=== PATIENT | female | born 1990 | race Caucasian/White ===

== ENCOUNTER 2022-05-28 18:33 | Inpatient (IN) | payer OTHER ==
[2022-05-28 19:12] VITALS: BMI 25.9
[2022-05-28] MEDS ORDERED: BISMUTH SUBSALICYLATE 524 MG/30 ML PO PRN (20:18)
[2022-05-28] MEDS ORDERED: DICYCLOMINE HCL 10 MG CAPSULE PO PRN (20:18)
[2022-05-28] MEDS ORDERED: NALOXONE HCL (KLOXXADO) 8 MG SPRAY NS PRN (20:18)
[2022-05-28] MEDS ORDERED: IBUPROFEN 600 MG TABLET (FP) PO PRN (20:18)
[2022-05-28] MEDS ORDERED: MAGNESIUM HYDROX 2400MG/30ML ORAL SUSPENSION 30 ML CUP PO PRN (20:18)
[2022-05-28] MEDS ORDERED: ACETAMINOPHEN 325 MG TABLET (FP) PO PRN ×2 (20:18)
[2022-05-28] MEDS ORDERED: ONDANSETRON *ODT* 4 MG TABLET SL PRN (20:18)
[2022-05-28] MEDS ORDERED: POLYETHYLENE GLYCOL (HEALTHYLAX) 3350 17 GM PACKET PO PRN (20:18)
[2022-05-28] MEDS ORDERED: BENZOCAINE/MENTHOL (CHLORASEPTIC ) LOZENGE MM PRN (20:18)
[2022-05-28] MEDS ORDERED: NICOTINE POLACRILEX 2 MG GUM BUC PRN (20:18)
[2022-05-28] MEDS ORDERED: LOPERAMIDE HCL 2 MG CAPSULE PO PRN (20:18)
[2022-05-28] MEDS ORDERED: IBUPROFEN 400 MG TABLET (FP) PO PRN (20:18)
[2022-05-28] MEDS ORDERED: MAG HYDROX/AL HYDROX/SIMETH 30 ML UNIT-DOSE CUP PO PRN (20:18)
[2022-05-28] MEDS ORDERED: cloNIDine HCL 0.1 MG TABLET PO PRN (20:21)
[2022-05-28] MEDS ORDERED: methaDONE HCL 10 MG TABLET (FOR DETOX USE ONLY) PO ONE ×2 (20:21→22:30)
[2022-05-28] MEDS ORDERED: MELATONIN 5 MG TABLETS PO SCH (22:00)
[2022-05-28] MEDS ORDERED: THIAMINE HCL 100 MG TABLET (FP) PO SCH (22:00)
[2022-05-29] MEDS ORDERED: PRENATAL VITAMINS W/ FOLIC ACID TABLET (FP) PO SCH (10:00)
[2022-05-29] MEDS ORDERED: NICOTINE 14 MG/24 HOURS TOPICAL PATCH TD SCH (10:00)
[2022-05-29] MEDS: hydrOXYzine PAMOATE 25 MG CAPSULE (FP) PO PRN ×2 (10:17→17:49)
[2022-05-29] MEDS: METHOCARBAMOL 500 MG TABLET PO PRN ×2 (10:17→17:49)
[2022-05-29 11:03] LABS: HEMATOCRIT 37.7 % (32.4-45.2); HEMOGLOBIN 12.5 GM/dL (10.7-15.3); MCH 30.4 pg (25.7-33.7); MCHC 33.2 g/dl (32.0-36.0); MEAN CELL VOLUME 91.5 fl (80-96); MEAN PLT VOLUME 9.2 fl (7.5-11.1); PLATELET COUNT 250 10^3/uL (134-434); RBC 4.12 M/mm3 (3.60-5.2); RDW 14.9 % (11.6-15.6); WHITE BLOOD COUNT 8.5 K/mm3 (4.0-10.0)
[2022-05-29 11:20] LABS: CALCIUM 8.3 mg/dL (8.5-10.1)
[2022-05-29 11:21] LABS: BLOOD UREA NITROGEN 12.8 mg/dL (7-18)
[2022-05-29 11:24] LABS: CREATININE 0.8 mg/dL (0.55-1.3)
[2022-05-29 11:26] LABS: BILIRUBIN,TOTAL 0.4 mg/dL (0.2-1); TOT PROT 6.6 g/dl (6.4-8.2)
[2022-05-29 11:27] LABS: ALBUMIN 3.2 g/dl (3.4-5.0)
[2022-05-29 17:42] VITALS: BP 139/80; PULSE 64; RESP 17; TEMP 98
[2022-05-30] MEDS ORDERED: methaDONE HCL 10 MG TABLET (FOR DETOX USE ONLY) PO ONE (10:00)
[2022-06-01] MEDS ORDERED: methaDONE HCL 10 MG TABLET (FOR DETOX USE ONLY) PO ONE (10:00)
== END 2022-05-29 18:24 | disposition left against medical advice (07) | DRG 770 ==
LOC: YASAS 18:33 → Y6N 21:08
PROVIDERS: ADMIT Allergy & Immunology; ATTEND Family Medicine
PROC: HZ2ZZZZ Detoxification Services for Substance Abuse Treatment (ICD-10-PCS; principal; 2022-05-28)
DX: F11.23 Opioid dependence with withdrawal (principal); F14.20 Cocaine dependence, uncomplicated; F32.A Depression, unspecified; F43.10 Post-traumatic stress disorder, unspecified; I10 Essential (primary) hypertension; Z87.891 Personal history of nicotine dependence; Z86.19 Personal history of other infectious and parasitic diseases; Z28.310 Unvaccinated for COVID-19; Z28.9 Immunization not carried out for unspecified reason
CPT/HCPCS: 36415; 80053; 81025; 85027; 86780; C9803-CS; U0003; U0005